=== PATIENT | male | born 1960 | race Caucasian/White ===

== ENCOUNTER → 2023-10-16 06:29 | Day surgery (SDC) | payer OTHER, SELFPAY | LOC: GI 06:29 | PROVIDERS: ATTENDING PHYSICIAN Surgery; FAMILY PHYSICIAN Family Medicine | DX: Z12.11 Encounter for screening for malignant neoplasm of colon (principal); Z85.038 Personal history of other malignant neoplasm of large intestine; K64.9 Unspecified hemorrhoids | CPT/HCPCS: 45330 ==

== ENCOUNTER → 2024-01-21 06:38 | Day surgery (SDC) | payer OTHER, SELFPAY | LOC: GI 06:38 | PROVIDERS: ATTENDING PHYSICIAN Internal Medicine; FAMILY PHYSICIAN Psychiatry & Neurology Psychiatry | DX: K44.9 Diaphragmatic hernia without obstruction or gangrene (principal); K31.7 Polyp of stomach and duodenum; K31.89 Other diseases of stomach and duodenum; Z15.09 Genetic susceptibility to other malignant neoplasm | CPT/HCPCS: 43239; 88305; 88342 ==

== ENCOUNTER 2024-10-21 06:15 | Day surgery (SDC) | payer OTHER, SELFPAY ==
[2024-10-21 07:13] LABS: Glucose - Point of Care 119 mg/dl (70-99)
== END 2024-10-21 08:29 | disposition home or self-care (01) ==
LOC: GI 06:15
PROVIDERS: ATTENDING PHYSICIAN Surgery; FAMILY PHYSICIAN Family Medicine
DX: Z12.11 Encounter for screening for malignant neoplasm of colon (principal); K63.89 Other specified diseases of intestine; Z15.09 Genetic susceptibility to other malignant neoplasm
CPT/HCPCS: 45331; 82962; 88305